=== PATIENT | female | born 1975 | race Caucasian/White ===

== ENCOUNTER 2023-10-14 23:21 | Emergency (ER) | payer MEDICAID ==
[~2023-10-14] VITALS: Ht 177.8 cm; Wt 79.0 kg
[2023-10-14 23:30] VITALS: TEMP 97.8; O2SAT 99
[2023-10-15] MEDS ORDERED: KETOROLAC 15MG/ML VIAL IV ONE (02:00)
[2023-10-15] MEDS ORDERED: CEFTRIAXONE 1GM/50ML 50 ML IV ONE (02:00)
[2023-10-15] MEDS ORDERED: CLIN-194 MT (03:31)
[2023-10-15] MEDS ORDERED: DOXY100C5 MT (03:31)
[2023-10-15 04:34] VITALS: BP 161/90; PULSE 72; RESP 18
[2023-10-15] MEDS: CEFTRIAXONE 1GM/50ML 50 ML IV NR (04:34)
[2023-10-15] MEDS: KETOROLAC 15MG/ML VIAL IV NR (04:34)
== END 2023-10-15 06:18 | disposition home or self-care (01) ==
LOC: ER 10-15 00:02
DX: S61.230A Puncture wound without foreign body of right index finger without damage to nail, initial encounter (principal); I10 Essential (primary) hypertension; Z98.890 Other specified postprocedural states; W55.01XA Bitten by cat, initial encounter; Y93.89 Activity, other specified; Y92.89 Other specified places as the place of occurrence of the external cause; Y99.8 Other external cause status
CPT/HCPCS: 99284; 96365; 96375; J0696; J1885